=== PATIENT | female | born 1975 | race Caucasian/White ===

== ENCOUNTER 2017-01-01 07:42 | Observation (INO) | payer OTHER ==
--- NOTE | 2017-01-01 08:24 | OBPROG ---
OBG Labor Progress Note Assessment/Plan: Assessment:contractions 1-2 minutes apart denies great pain feeling tightening pain well managed/ feeling tightening cat1 fhr feeling baby move now denies leaking denies bleeding Plan:discharge to home with instructions fu this week in the office 01/01/17 08:21 Subjective: Came into labor and delivery for decreased movement. - SVE Dilation (cm): 1 Effacement (%): 50 Station: -3 - Physical Exam General Appearance: WD/WN, alert, no apparent distress Respiratory: chest non-tender, lungs clear, normal breath sounds Cardiac/Chest: regular rate, rhythm Abdomen: normal bowel sounds Extremities: normal range of motion, Irish's sign (negative bilaterally) DTR- Lower Extremities: Knee (R): 1+, Knee (L): 1+ (no clonus) Skin: normal color, warm/dry Neuro/Psych: no motor/sensory deficits, alert, normal mood/affect, oriented x 3 Oxytocin Orders Assessment - Pre-Induction/Augmentation Assessment Gestational Age: 38 week(s) and 0 day(s) ICD10 Worksheet Patient Problems: Problems Problem Status Onset term decreased movement Acute
--- NOTE | 2017-01-01 15:34 | GHP ---
[f rep st] HISTORY AND PHYSICAL DATE OF ADMISSION: 01/01/2017 The patient is a 41-year-old, 7, para 1, with an EDC of 01/15/2017 whose gestational age is 38 weeks who comes in with complaint of decreased movement today on 01/01/2017. Denies leaking, bleeding. States feeling occasional contractions. MEDICAL HISTORY: History of anemia, thyroid dysfunction, ulcers. GYNECOLOGICAL HISTORY: Abnormal Pap in college. Condom use. SURGICAL HISTORY: Laparoscopy in . D and C in 2009. Infertility. Has consulted [facility] 03/2015. HISTORY: AMA, greater than 40. History of retained placenta. History of multiple losses, trisomy 21, as well as trisomy 13. They have 1 other child, in 05/2010, a male. 7 pounds 6 ounces, 38 and 5/7 weeks. The patient has had multiple losses, in 2006, an EAB. In 02/2013, an SAB. In 10/2013, an MAB with a D and C. In 09/2014, a trisomy 21 with multiple anomalies. In 04/2015, an MAB, trisomy 13, with a D and C. SOCIAL HISTORY: . 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 Significant other's name is Florentin. They have 1 other child, in 05/2010, a male. 7 pounds 6 ounces, 38 and 5/7 weeks. 12 hours, vaginal delivery with an epidural, Severiano. No drug use. No tobacco use. LABS: Patient is O positive. Antibody negative. RPR is nonreactive. Rubella is immune. Hepatitis is negative. HIV is negative. Trio screen is negative. TSH was within normal limits throughout the . Parvovirus: Patient is immune and was negative. AFP was negative. Verifi was negative. 1-hour GTT was within normal limits. PHYSICAL EXAMINATION: GENERAL: Patient is awake, alert, oriented x3. LUNGS: Clear bilaterally. ABDOMEN: Bowel sounds are positive in all 4 quadrants. EXTREMITIES: DTRs 1+ bilaterally. Homans sign is negative. : Occasional contractions on the monitor, anywhere from 1 to 3 minutes apart. PELVIC: Patient was 1 cm, 50% effaced, posterior soft but high. PLAN OF CARE: 1. Continuous monitoring NST. 2. Reassurance. 3. Labor precautions. No change in cervix. Reactive, reassuring NST. Patient was given instructions to return for followup in the office this next week with her appointment. /[id number]/MODL MTDFelipe
== END 2017-01-01 08:40 | disposition home or self-care (01) ==
LOC: FLD 07:42
PROVIDERS: ADMIT Advanced Practice Midwife; ATTEND Advanced Practice Midwife
DX: O36.8130 Decreased fetal movements, third trimester, not applicable or unspecified (principal); O09.523 Supervision of elderly multigravida, third trimester; Z3A.38 38 weeks gestation of pregnancy

== ENCOUNTER 2017-01-10 22:56 | Inpatient (IN) | payer OTHER ==
[2017-01-10] MEDS ORDERED: fentaNYL 100 MCG/2 ML INJ ONE ×2 (23:11→23:31)
[2017-01-10] MEDS: LR 1,000 ML IV PRN (23:15)
[2017-01-10] MEDS ORDERED: OLIVE OIL 118 ML BTL MISC PRN (23:23)
[2017-01-10] MEDS ORDERED: TERBUTALINE SULFATE 1 MG/ML VIAL IV PRN (23:23)
[2017-01-10] MEDS ORDERED: OXYTOCIN/RINGERS LACTATE 1,000 ML IV PRN (23:23)
[2017-01-10] MEDS ORDERED: EPSOM SALT 454 GM TP PRN (23:23)
[2017-01-10 23:31] LABS: % IMMATURE GRANULYOCYTES 0.9 % (0.0-1.1); ADD DIFF? NO; ADD MORPH? NO; ADD SCAN? NO; ATYPICAL LYMPHOCYTE FLAG 10 (0-99); FRAGMENT RBC FLAG 0 (0-99); HEMATOCRIT 34.1 % (38.0-47.0); HEMOGLOBIN 11.9 g/dL (12.6-16.3); LEFT SHIFT FLG 0 (0-99); LIPEMIA HEMOLYSIS FLAG 90 (0-99); MEAN CELL HEMOGLOBIN 31.3 pg (27.9-34.1); MEAN CELL HEMOGLOBIN CONCENTR. 34.9 g/dL (32.4-36.7); MEAN CELL VOLUME 89.7 fL (81.5-99.8); MEAN PLATELET VOLUME 11.7 fL (8.7-11.7); PLATELET CLUMPS FLAG 0 (0-99); PLATELET COUNT 138 10^3/uL (150-400); RED CELL DISTRIBUTION WIDTH 13.3 % (11.5-15.2)
[2017-01-10] MEDS ORDERED: fentaNYL 2MCG/ML/BUP 0.1% RTU 100 ML BAG EP ONE (23:31)
[2017-01-10] MEDS ORDERED: BUPIVACAINE 0.25% 30 ML SDV ONE (23:31)
[2017-01-10] MEDS ORDERED: PHENYLEPHRINE HCL 100 MCG/ML SYR ONE (23:31)
[2017-01-10] MEDS ORDERED: LIDOCAINE 1% 300 MG/30 ML SDV ONE (23:34)
[2017-01-10] MEDS ORDERED: TERBUTALINE SULFATE 1 MG/ML VIAL ONE (23:35)
[2017-01-10] MEDS ORDERED: OXYTOCIN 10 UNIT/ML VIAL ONE (23:35)
[2017-01-10] MEDS ORDERED: OLIVE OIL 118 ML BTL ONE (23:35)
[2017-01-10] MEDS ORDERED: MISOPROSTOL 200 MCG TAB ONE (23:36)
--- NOTE | 2017-01-11 00:39 | PREANESOB ---
Obstetric Pre-Anesthesia Info - General Info Proposed Procedure: Labor and delivery. : 7 Para: 1 WBD: 39 - Info Status: Full Term Monitors: External FHR Baseline (bpm): 125 FHR Pattern: Reassuring - Labor Status Cervical Dilation per last OB SVE: 9 Indications for Labor Analgesia: Pain Control Labor Epidural: Proposed Anesthesia ROS: Prior labor epidural. Allergies/Adverse Reactions: Allergy/AdvReac Type Severity Reaction Status Date / Time No Known Allergies Allergy Unverified 12/31/11 15:16 Home Medications: Medication Instructions Recorded Hydrocodone Bit/Acetaminophen 1 - 2 tab PO Q6PRN PRN #20 tab 12/31/11 [Vicodin 5/500] No Medications [NO HOME 1 ea MISC 12/31/11 MEDICATIONS] IRON 1 tab PO BID 01/11/17 1 tab PO DAILY 01/11/17 Visit Medications: Generic Name Dose Route Start Last Admin Trade Name Freq PRN Reason Stop Dose Admin Lactated Ringer's 1,000 mls @ 0 mls/hr 01/10/17 23:23 Lr IV 07/09/17 23:22 PRN PRN SEE PROTOCOL CONDITIONS Protocol Per Protocol Oxytocin/Lactated Ringer's 1,000 mls @ 150 mls/hr 01/10/17 23:23 Pitocin 20 Units/Lr (Premix) IV PRN PRN Post- bleeding Ibuprofen 600 mg 01/10/17 23:23 Motrin PO 07/09/17 23:22 Q6HRS PRN post , inflammation Magnesium Sulfate 454 gm 01/10/17 23:23 Epsom Salt TP 07/09/17 23:22 Q1H PRN perineal discomfort Marcus Oil 118 ml 01/10/17 23:23 Sweet Oil MISC 07/09/17 23:22 ONCE PRN preneal massage Terbutaline Sulfate 0.25 mg 01/10/17 23:23 Brethine IV 07/09/17 23:22 ONCE PRN Tachysystole Discontinued Medications Generic Name Dose Route Start Last Admin Trade Name Freq PRN Reason Stop Dose Admin Bupivacaine HCl Confirm 01/10/17 23:31 Sensorcaine 0.25% Sdv Administered 01/10/17 23:32 Dose 30 ml .ROUTE .STK-MED ONE Fentanyl Confirm 01/10/17 23:11 Sublimaze Administered 01/10/17 23:12 Dose 100 mcg .ROUTE .STK-MED ONE Fentanyl Confirm 01/10/17 23:31 Sublimaze Administered 01/10/17 23:32 Dose 100 mcg .ROUTE .STK-MED ONE Fentanyl/Bupivacaine HCl Confirm 01/10/17 23:31 Fentanyl/Bupivacaine/Ns 2 Mcg/Ml 0.1% (Premix Administered 01/10/17 23:32 Dose 100 ml EP .STK-MED ONE Lidocaine HCl Confirm 01/10/17 23:34 Lidocaine Hcl 1% Administered 01/10/17 23:35 Dose 300 mg .ROUTE .STK-MED ONE Misoprostol Confirm 01/10/17 23:36 Cytotec Administered 01/10/17 23:37 Dose 1,000 mcg .ROUTE .STK-MED ONE Marcus Oil Confirm 01/10/17 23:35 Sweet Oil Administered 01/10/17 23:36 Dose 118 ml .ROUTE .STK-MED ONE Oxytocin Confirm 01/10/17 23:35 Pitocin Administered 01/10/17 23:36 Dose 30 unit .ROUTE .STK-MED ONE Phenylephrine HCl Confirm 01/10/17 23:31 Neosynephrine Administered 01/10/17 23:32 Dose 1,000 mcg .ROUTE .STK-MED ONE Terbutaline Sulfate Confirm 01/10/17 23:35 Brethine Administered 01/10/17 23:36 Dose 1 mg .ROUTE .STK-MED ONE - Anesthesia History Response to Local Anesthetics: Normal Anesthesia & Operative History: No Prior Problems Family Anesthesia History: Negative - Social History Substance Use/Abuse: Denies - Focused Exam Blood Pressure: 132/80 Heart Rate: 97 Height/Weight (Nursing): Height 170.18 cm Weight 67.585 kg Airway: No abnormalities. Physical Exam: Within normal limits. ASA Status: II Labs: 01/10/17 23:20 Patient ABO/Rh O POSITIVE 01/10/17 23:20 - Plan Anesthetic Plan: CSE Consent Signed and on Chart: Yes Patient/Guardian Understands and Agrees to Plan: Yes
[2017-01-11] MEDS ORDERED: ONDANSETRON 4 MG/2 ML VIAL IVP PRN ×2 (00:41→10:56)
[2017-01-11] MEDS ORDERED: PHENYLEPHRINE HCL 100 MCG/ML SYR IVP PRN ×2 (00:41→10:56)
--- NOTE | 2017-01-11 00:41 | POSTANESTH ---
Post Anesthetic Evaluation Cardiovascular Status: Normal, Stable Respiratory Status: Normal, Stable, Similar to Pre-op Cond. Level of Consciousness/Mental Status: Can Participate in Eval, Alert and Oriented Pain Control: Adequate, Prn Tx Ordered Nausea/Vomiting Control: Adequate, Prn Tx Ordered Complications Possibly Related to Anesthesia: None Noted
[2017-01-11] MEDS ORDERED: LR 500 ML IV SCH (01:00)
[2017-01-11] MEDS ORDERED: fentaNYL 2MCG/ML/BUP 0.1% RTU 100 ML EP SCH (01:00)
[2017-01-11] MEDS ORDERED: LR 500 ML IV PRN (01:19)
[2017-01-11] MEDS ORDERED: fentaNYL 100 MCG/2 ML INJ IVP ONE (01:20)
[2017-01-11] MEDS ORDERED: OXYTOCIN/RINGERS LACTATE 500 ML IV SCH (01:30)
[2017-01-11] MEDS: LR 1,000 ML IV PRN ×3 (02:00→20:40)
--- NOTE | 2017-01-11 02:21 | GHP ---
[f rep st] PREOP HISTORY AND PHYSICAL DATE OF ADMISSION: 01/10/2017 HISTORY OF PRESENT ILLNESS: Upon admission, the patient is a 41-year-old, G7, P1, A5 at 39+ weeks gestation, with an estimated due date of 01/15/2017, who presents after spontaneous rupture of membranes approximately 1930 with a small amount of clear fluid. The patient had a couple episodes of small leakage, but then was able to rest approximately an hour and a half. She was awoken with very strong frequent contractions at 2145. The patient presented to Labor and Delivery shortly there afterwards and was 5 cm dilated, in active labor. The patient was requesting an epidural and feeling quite out of control with the contraction pain. The patient was given fentanyl through the IV after that was started and also was using nitrous for pain control until Dr. Bonner arrived for the epidural. Since the epidural, now, the patient has gotten very comfortable. There was continued small amount of clear fluid, small amount of blood on exam. CARE: The patient has been with [facility] since 10 weeks' gestation. The patient had a history of multiple losses, two of which were confirmed to be chromosomal abnormalities of trisomy 21 and 13. The patient had a lot of anxiety in the 1st trimester, awaiting the results of the Verifi testing which was normal, as well as the increased miscarriage risks. The patient had her first ultrasound performed and showed an anterior low-lying placenta, but no sign of any bleeding under the placenta. The patient had this in response to the some intense cramping she had at 19 weeks' gestation. The followup anatomy ultrasound at 20 weeks revealed estimated weight at the 9th percentile. Normal fluid. There were some suboptimal an anatomy views. The patient had a followup ultrasound at 24 weeks, which continued to show low estimated weight, now at the 21st percentile, but good visualization of all anatomy. The cervix was no longer low-lying. Another followup ultrasound was performed at 30 weeks and now the estimated weight had improved to the 72nd percentile. Fluid was totally normal. The patient has had twice weekly NSTs beginning at 36 weeks due to advanced maternal age. These have all been reactive. The patient has been anemic through the and has been on iron twice a day. Other labs: Maternal blood type O positive, with negative antibody screen. RPR nonreactive. Rubella immune. Hepatitis B surface antigen negative. HIV negative. Cystic fibrosis, SMA, fragile X, all negative. TSH and other thyroid functions normal. Parvovirus negative. Verifi testing was normal with MSAFP negative. 1-hour Glucola was normal. Hematocrit was 31% in mid and dropped to 30%. GBS culture was negative. PAST MEDICAL HISTORY: Frequent headaches, but no migraine disorder. Abnormal Pap smear performed in [facility], no colposcopy was performed. Otherwise Paps all normal. Habitual aborter, and the patient was seen with [facility] in March 2015 for an evaluation. The patient with a history with ulcers. PAST SURGICAL HISTORY: Had a D and C, in 2009 for retained tissue. In 1997, a laparoscopy. PAST OBSTETRIC HISTORY: In 2006, a termination in the 1st trimester. In May 2010, a viable male at 7 pounds 6 ounces delivered vaginally after prolonged pushing stage. , the patient had retained tissue, and a D and C several weeks later for retained placenta. In February 2013, an SAB. In October 2013, a missed AB with a D and C. In September 2014, termination of a with trisomy 21 with multiple anomalies. In April 2015, a d and C for missed AB of a trisomy 13. ALLERGIES: The patient has no known drug allergies. CURRENT MEDICATIONS: Iron twice a day, as well as vitamins. 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 The patient is a nonsmoker. No alcohol or drug use through the . PHYSICAL EXAMINATION: GENERAL: Upon admission, the patient is a well-developed , well-nourished, white female, in significant distress with contraction frequency and intensity and panic about not getting pain relief. VITAL SIGNS: The patient was afebrile with normal vital signs in the 130s over 80s. See nursing documentation for full details. HEART TONE: Category I tracing with a baseline in the 120s with good variability and accelerations. No decelerations noted. Contractions every 2-3 minutes. After the fentanyl, the heart rate tracing lost variability and accelerations, however, has resumed a category I tracing again. PELVIC: Cervical exam repeated now as patient is comfortable with the epidural. Currently there is an anterior lip and the head at -1 station. Fluid clear. EXTREMITIES: Nontender. No edema. ASSESSMENT: Intrauterine at 39+ weeks gestation, in active labor. Spontaneous rupture of membranes, negative group B strep. Anemia in , on iron. History of pushing4-6 hours with her first delivery and then retained placenta with delayed curettage. PLAN: We will add Pitocin if the contraction pattern becomes protracted after the epidural. Will labor down as the patient had extended hours of pushing last time and optimize her energy. /[id number]/MODL MTDD
[2017-01-11] MEDS ORDERED: CALCIUM CARBONATE 500 MG CHEWABLE TAB PO PRN (02:52)
--- NOTE | 2017-01-11 05:17 | OBPROG ---
OBG Labor Progress Note Assessment/Plan: Assessment: IUP at 39w3d rapid active labor, GBS - complete for hours, ctxns short - initiating pitocin again Plan: rest and labor down for now 01/11/17 05:14 Subjective: pt very anxious after recent decel - reassured about how baby looks now. better pain control after recent bolus. strong effort with pushing Objective: 01/10/17 23:20 Patient ABO/Rh O POSITIVE 01/10/17 23:20 Temp Pulse Resp BP Pulse Ox 97 132/80 H 01/11/17 00:40 01/11/17 00:40 - SVE Dilation (cm): 10 Effacement (%): 100 Station: 0 (caput to +1) Dilation Complete Date: 01/11/17 Dilation Complete Time: 02:15 Cates Current Contraction Pattern: Regular (q 2 min on 3 mu/min pit) FHR (bpm): 130 FHR Pattern Variability: Moderate FHR Category: 1 (currently with no decels, at 4am pt had a 7-8 min decels after EVAN bolus while on hands/knees. Good recovery after position change) Membranes: SROM Amniotic Fluid Color: Clear Oxytocin Orders Assessment - Pre-Induction/Augmentation Assessment Gestational Age: 39 week(s) and 3 day(s) ICD10 Worksheet Patient Problems: Problems Problem Status Onset Labor abnormal Acute - ICD10 Problem Qualifiers (1) Labor abnormal
[2017-01-11] MEDS ORDERED: fentaNYL 100 MCG/2 ML INJ ONE ×2 (06:37→09:03)
[2017-01-11] MEDS ORDERED: BUPIVACAINE 0.25% 30 ML SDV ONE (06:38)
--- NOTE | 2017-01-11 06:51 | OBPROG ---
OBG Labor Progress Note Assessment/Plan: Assessment: IUP at 39w3d rapid active labor, GBS - complete for hours pitocin at 3 mu/min Plan: redosing EVAN and then will begin pushing again, will consider assisting 01/11/17 05:14 01/11/17 06:48 01/11/17 06:53 Subjective: hurting in low back and low abd. Dr Bonner redosing EVAN Objective: 01/10/17 23:20 Patient ABO/Rh O POSITIVE 01/10/17 23:20 Temp Pulse Resp BP Pulse Ox 97 132/80 H 01/11/17 00:40 01/11/17 00:40 - SVE Dilation (cm): 10 Effacement (%): 100 Station: +1 (per ) Dilation Complete Date: 01/11/17 Dilation Complete Time: 02:15 Cates Current Contraction Pattern: Regular (q 2-3 min on 3 mu/min pit) FHR (bpm): 130 FHR Pattern Variability: Moderate FHR Category: 2 (occas small variables and accels) Membranes: SROM Amniotic Fluid Color: Clear Oxytocin Orders Assessment - Pre-Induction/Augmentation Assessment Gestational Age: 39 week(s) and 3 day(s) ICD10 Worksheet Patient Problems: Problems Problem Status Onset Labor abnormal Acute - ICD10 Problem Qualifiers (1) Labor abnormal
[2017-01-11] MEDS ORDERED: CEFAZOLIN 2 GM/DEXTROSE/100 ML BAG IV ONE (08:27)
[2017-01-11] MEDS ORDERED: morphINE PF 5 MG/10 ML INJ ONE (08:57)
[2017-01-11] MEDS ORDERED: OXYTOCIN 100 UNITS/10 ML VIAL ONE (09:31)
[2017-01-11] MEDS ORDERED: ONDANSETRON 4 MG/2 ML VIAL ONE ×2 (09:31)
[2017-01-11] MEDS ORDERED: DEXAMETHASONE 4 MG/ML VIAL ONE ×2 (09:31)
[2017-01-11] MEDS ORDERED: PHENYLEPHRINE HCL 100 MCG/ML SYR ONE ×2 (09:31→10:02)
[2017-01-11] MEDS ORDERED: METHYLERGONOVINE MAL 0.2 MG/ML INJ ONE (09:44)
[2017-01-11] MEDS ORDERED: SIMETHICONE 80 MG TAB CHEW PO PRN (10:33)
[2017-01-11] MEDS ORDERED: PROMETHAZINE HCL 25 MG/ML INJ IVP PRN (10:33)
[2017-01-11] MEDS ORDERED: LACTULOSE 20 GM/30 ML UDCUP PO PRN (10:34)
[2017-01-11] MEDS ORDERED: BISACODYL 10 MG SUPP PR PRN (10:34)
[2017-01-11] MEDS ORDERED: MAGNESIUM HYDROXIDE 30 ML UDCUP PO PRN (10:34)
--- NOTE | 2017-01-11 10:38 | OBDEL ---
Info Type: Primary GBS+: No Indications for Delivery: Spontaneous Labor (arrest of descent) Vaginal Delivery - Labor and Delivery Onset of Contractions Date: 01/10/17 Onset of Contractions Time: 21:45 Dilation Complete Date: 01/11/17 Dilation Complete Time: 02:15 Operative Report - Delivery Pre-op Diagnoses: IUP @ 40 weeks, arrest of descent Post-op Diagnoses: same Nulliparous Prior to Delivery: No Presentation at Delivery: Vertex Procedure: Unscheduled, Low Transverse Surgeon: Queta Tripp Programmer Business: Cristiana Petersen Anesthesiologist: Derrick Bonner Foreman Or Supervisor And Operator/CLIENT SUPPORT PROFESSIONAL: Traci Rivas L&Felipe Analgesia/Anesthesia Type: Epidural, Spinal Complications: None Findings: normal uterus tubes and ovaries IV Fluid (ml): 2,000 EBL: 1000 Data Cates Delivery Date: 01/11/17 Delivery Time: 09:41 CATRACHITO: 01/15/17 Gestational Age: 39 week(s) and 3 day(s) Sex of : Female Weight (gm): 3316.894 g Score (1 Min): 5 Score (5 Min): 8 ICD10 Worksheet Patient Problems: Problems Problem Status Onset Arrest of descent, delivered, current hospitalization Acute Delivered by section Acute Labor abnormal Acute - ICD10 Problem Qualifiers (1) Arrest of descent, delivered, current hospitalization (2) Delivered by section
[2017-01-11] MEDS ORDERED: METHYLERGONOVINE MAL 0.2 MG/ML INJ IM ONE (10:40)
--- NOTE | 2017-01-11 10:51 | OBGCSDC ---
General Delivery Information - General Info : 7 Para: 1 Abortions: 5 Delivery Physician/CNM: Queta Tripp Weight Loss Centre Manager: Cristiana Petersen Admission Date: 01/11/17 Labs: Patient ABO/Rh O POSITIVE 01/10/17 23:20 Hct 34.1 % (38.0-47.0) L 01/10/17 23:20 Vaginal - Diagnosis Presentation at Delivery: Vertex - Operations/Procedures L&D Analgesia/Anesthesia Type: Epidural, Spinal - Delivery Number of Prior Sections: 0 Indications for Prior Section: Arrest of Descent Indications for Current Section: Arrest of Descent Type: Primary Surgical Procedures: Unscheduled, Low Transverse Intra-op Complications: None EBL: 1000 L&D Analgesia/Anesthesia Type: Epidural, Spinal - Hospital Course Antepartum: Pt has history of multiple SAB. G5 was an elective TAB secondary to T21 with multiple anomalies, G6 SAB with T 13. She had a prolonged second stage with G2 and a retained placenta. Anxiety during this . AMA age 41. Intrapartum: Admitted @ 5 cm, received epidural. Labored down and quickly progressed to complete. Intermittent pushing efforts over 5 hours with multiple attempts to facilitate position changes. Head never descended past 0 to +1 station. Decision made to proceed with c section secondary to arrest of descent. Data Cates Delivery Date: 01/11/17 Delivery Time: 09:41 CATRACHITO: 01/15/17 Gestational Age: 39 week(s) and 3 day(s) Sex of : Female Weight (gm): 3316.894 g Score (1 Min): 5 Score (5 Min): 8
--- NOTE | 2017-01-11 10:55 | POSTANESTH ---
Post Anesthetic Evaluation Cardiovascular Status: Normal, Stable Respiratory Status: Normal, Stable, Similar to Pre-op Cond. Level of Consciousness/Mental Status: Can Participate in Eval, Alert and Oriented Pain Control: Adequate, Prn Tx Ordered Nausea/Vomiting Control: Adequate, Prn Tx Ordered Complications Possibly Related to Anesthesia: None Noted (Epidural not working well enough for surgery, epidural catheter removed, spinal easy and tolerated well, BP treated, comfortable for C Section, to PACU, no pain or nausea.)
[2017-01-11] MEDS ORDERED: NALOXONE HCL 0.4 MG/ML INJ IVP PRN ×2 (10:56→15:51)
[2017-01-11] MEDS ORDERED: MEPERIDINE 25 MG/ML SYR IVP PRN (10:56)
[2017-01-11] MEDS ORDERED: SCOPOLAMINE HYDROBROMIDE 1.5 MG PATCH TD PRN (10:58)
[2017-01-11] MEDS: KETOROLAC 30 MG/1 ML SDV IVP PRN ×2 (11:14→17:58)
--- NOTE | 2017-01-11 11:17 | GOP ---
[f rep st] OPERATIVE REPORT DATE OF OPERATION: 01/11/2017 SURGEON: Queta Tripp MD [employer] OPERATOR: Aida Petersen, certified nurse assistant designer. ANESTHESIA: Spinal. ANESTHESIOLOGIST: Dr. Bonner. PREOPERATIVE DIAGNOSIS: Intrauterine at 39 weeks gestation with arrest of descent. POSTOPERATIVE DIAGNOSIS: Intrauterine at 39 weeks gestation with arrest of descent. PROCEDURE PERFORMED: Primary low transverse section. FINDINGS: Viable female. Apgars of 5 and 8. Weight of 7 pounds 5 ounces. ESTIMATED BLOOD LOSS: For the procedure was 1000 mL. INDICATIONS: The patient is a 41-year-old 7, para 1-0-5-1, who presented at 39 and 3/7 week s gestation with spontaneous rupture of membranes and spontaneous labor. She was admitted to Labor and Delivery early in the morning on January 11, 2017 at 5 cm dilated and spontaneously ruptured. She r eceived an epidural, had quick progress and was completely dilated at approximately 2:00 a.m. The p atient labored down after she was comfortable with her epidural. She had intermittent pushing effor ts and then resting efforts, with a total attempted second stage of greater than 5 hours, but not co ntinuous pushing during that whole time. She had pushed the baby's head to 0 to +1 station. Howeve r, the head was not descending past the pubic bone or the pelvic outlet and the baby had a large beto unt of caput seen, was felt to be in OP presentation and so the diagnosis of arrest of descent was m carrillo. The patient was given options and opted for a delivery. She was consented for the pr ocedure. She understood the risks and benefits. The risks including bleeding, infection, damage to internal organs, uterus, tubes, ovaries, bowel, bladder, nerves, blood vessels, ureters, risk of injury , risk of hemorrhage requiring blood transfusion or hysterectomy. The patient understood these risk s and benefits, and agreed to proceed. DESCRIPTION OF PROCEDURE: The patient was taken to the operating room where her epidural was remove d and a spinal was replaced. Spinal was replaced without difficulty. She was prepped and draped in the dorsal supine position with a leftward tilt, and a Herrera catheter was placed in her bladder. After adequate anesthesia was assured, a transverse skin incision was made with a scalpel and the in cision was carried down to the underlying layer of fascia with the Bovie. The fascia was incised in the midline. Fascial incision was extended laterally with Riggs scissors. Superior aspect of the f ascial incision was grasped with Arline clamps, elevated, and the rectus muscles were dissected off sharply. Inferior aspect of the fascial incision was grasped with Arline clamps, elevated, and the rectus muscles were dissected off sharply. The rectus muscles were in the midline and the peritoneum was entered sharply. The peritoneal incision was extended superiorly and inferiorly, wi th good visualization of the bladder. The bladder blade was inserted. The vesicouterine peritoneum was grasped with pickups and entered sharply with the Metzenbaum scissors. The incision was extend ed laterally and the bladder flap was created digitally. The bladder blade was reinserted. The dagmar blayne was incised with a knife. There was clear amniotic fluid upon entry into the uterine cavity. T he uterine incision was extended laterally with bandage scissors. The infant was direct OP presenta tion deep into the pelvis. The baby was delivered atraumatically. The mouth and nose were bulb suc tioned, the cord was clamped and cut and the was handed off to the awaiting nurse pr actitioners. Cord bloods were sent. The placenta was removed manually. The uterus was exteriorized and cleared of all clots and debris. The uterine incision was repaired with 0 Vicryl in a running, locked fashion. A second imbricatin g layer of suture was performed with 0 Vicryl. Small areas of bleeding were repaired with 0 Vicryl and good hemostasis was obtained. The uterus was returned to the abdomen. Gutters were cleared of all clots and debris. Reinspection of the uterine incision again assured hemostasis. The rectus mu scles were approximated with 2-0 Vicryl in an inverted mattress fashion. The fascia was closed with #1 Vicryl in a running fashion, the subcutaneous layer was closed with 2-0 Vicryl and the skin was closed with 4-0 Vicryl. The patient tolerated the procedure well. Sponge, lap, needle, and instrum ent counts were correct x2. The patient went to the recovery room in good condition. FLUIDS REPLACED: 2000 mL. URINE OUTPUT: 500 mL. /[id number]/MODL
[2017-01-11] MEDS: HYDROCODONE/APAP 5/325 TAB PO PRN (14:02)
[2017-01-11] MEDS ORDERED: HYDROmorphONE/DILAUDID 6 MG/30 ML PCA IV PRN (15:51)
--- NOTE | 2017-01-11 18:28 | OBPP ---
Progress Note Assessment/Plan: Assessment: 41 y/o POD #0 s/p LTCS secondary to arrest of descent doing well. Plan: continue to optimize pain control with Toradol and Dilaudid MASTER MACHINIST. Will advance diet and try po pain meds. support and routine POC. 01/11/17 18:29 Subjective: Pt is doing better now with Dilaudid MASTER MACHINIST. She is feeling some incisional pain but it is better. No n/v, torito small amounts of re diet. Baby is doing well and nursing. Objective: 01/10/17 23:20 Patient ABO/Rh O POSITIVE 01/10/17 23:20 Temp Pulse Resp BP Pulse Ox 36.5 C 58 L 20 90/60 L 95 01/11/17 16:25 01/11/17 16:25 01/11/17 16:25 01/11/17 16:25 01/11/17 16:25 Uterine Position/Fundal Height: Umbilicus -2 Uterine Tone: Firm Physical Exam - Physical Exam General Appearance: WD/WN, alert, no apparent distress Neck: non-tender, full range of motion, supple Respiratory: chest non-tender, lungs clear, normal breath sounds Cardiac/Chest: regular rate, rhythm Abdomen: normal bowel sounds, dressing (c/d/i) Extremities: swelling (no), Irish's sign (neg)
[2017-01-11] MEDS: SENNOSIDES/DOCUSATE SODIUM TAB PO SCH (20:37)
[2017-01-12] MEDS: KETOROLAC 30 MG/1 ML SDV IVP PRN (00:12)
[2017-01-12] MEDS: IBUPROFEN 600 MG TAB PO PRN ×3 (07:21→19:33)
[2017-01-12] MEDS: SENNOSIDES/DOCUSATE SODIUM TAB PO SCH ×2 (07:21→11:22)
[2017-01-12] MEDS: HYDROCODONE/APAP 5/325 TAB PO PRN (07:22)
[2017-01-12] MEDS ORDERED: PATCH REMOVAL 1 EA PATCH TD ONE (10:58)
[2017-01-12] MEDS: IRON POLYSAC/IRON HEME 28 MG TAB PO SCH ×2 (11:22→23:06)
[2017-01-12] MEDS: OXYCODONE/APAP 5/325 TAB PO PRN ×4 (11:23→23:06)
--- NOTE | 2017-01-12 18:51 | OBPP ---
Progress Note Assessment/Plan: Assessment: pod# 1 s/p PLTCS - arrest of descent anemia breast feeding Plan: iron routine post operative care 01/12/17 18:48 Subjective: patient is doing well. pain controlled better after percocet - hurts more than expected. normal lochia. denies headache and changes in vision. ambulating. passing gas. voiding without difficulty. Objective: 01/12/17 04:35 Patient ABO/Rh O POSITIVE 01/10/17 23:20 Temp Pulse Resp BP Pulse Ox 36.4 C 68 14 84/49 L 93 01/12/17 16:00 01/12/17 16:00 01/12/17 16:00 01/12/17 16:00 01/12/17 16:00 Physical Exam - Physical Exam General Appearance: WD/WN, alert, no apparent distress Respiratory: chest non-tender, lungs clear, normal breath sounds Cardiac/Chest: normal peripheral pulses, regular rate, rhythm Abdomen: normal bowel sounds, hypoactive bowel sounds, non-tender, other ( fundus firm and non tender) Extremities: normal range of motion, non-tender, normal inspection, normal capillary refill Skin: normal color, warm/dry, other (incision clean dry and intact) Neuro/Psych: no motor/sensory deficits, alert, normal mood/affect, oriented x 3
[2017-01-12 20:54] VITALS: RESP 16
[2017-01-13] MEDS: IBUPROFEN 600 MG TAB PO PRN ×4 (01:05→20:01)
[2017-01-13] MEDS: OXYCODONE/APAP 5/325 TAB PO PRN ×5 (03:06→21:00)
[2017-01-13] MEDS: IRON POLYSAC/IRON HEME 28 MG TAB PO SCH ×2 (07:35→20:00)
[2017-01-13] MEDS: SENNOSIDES/DOCUSATE SODIUM TAB PO SCH ×2 (07:35→20:00)
--- NOTE | 2017-01-13 08:11 | OBPP ---
Progress Note Assessment/Plan: Assessment: 1) s/p 1LTCS secondary to arrest of descent POD # 2 - pt is stable 2) Anemia - pt is asymptomatic Plan: Continue routine pp care Encourage ambulation Cont bowel protocol Cont iron/colace Try K pad and abd binder prn Plan for d/c home in 24-48 hrs 01/13/17 08:11 Subjective: Pt seen and examined. She is c/o mid-abdominal and LLQ pain this am. Taking Percocet and Motrin with some relief. Pt is OOB, torito reg diet but decreased appetite, passing flatus, no BM yet. Denies any f/c/n/v/CP or SOB. Moderate lochia. BF is going well so far. Objective: 01/12/17 04:35 Patient ABO/Rh O POSITIVE 01/10/17 23:20 Temp Pulse Resp BP Pulse Ox 36.6 C 85 16 90/52 L 95 01/12/17 20:00 01/12/17 20:00 01/12/17 20:00 01/12/17 20:00 01/12/17 20:00 Uterine Position/Fundal Height: Umbilicus -2 Uterine Tone: Firm Physical Exam - Physical Exam General Appearance: WD/WN, alert, no apparent distress Respiratory: lungs clear, normal breath sounds Cardiac/Chest: regular rate, rhythm Abdomen: normal bowel sounds, non-tender, soft, flatus (+), incision (C/D/I with steri strips) Extremities: non-tender, normal inspection Skin: normal color, warm/dry Neuro/Psych: alert, normal mood/affect, oriented x 3
[2017-01-13] MEDS: POLYETHYLENE GLYCOL 3350 17 GM PKT PO PRN (08:50)
[2017-01-13] MEDS: DOCUSATE SODIUM 100 MG CAP PO PRN (20:00)
[2017-01-14] MEDS: IBUPROFEN 600 MG TAB PO PRN ×3 (01:49→17:03)
[2017-01-14] MEDS: OXYCODONE/APAP 5/325 TAB PO PRN ×4 (01:49→15:46)
[2017-01-14] MEDS: IRON POLYSAC/IRON HEME 28 MG TAB PO SCH (08:28)
[2017-01-14] MEDS: DOCUSATE SODIUM 100 MG CAP PO PRN (08:28)
[2017-01-14] MEDS: POLYETHYLENE GLYCOL 3350 17 GM PKT PO PRN (10:14)
[2017-01-14 10:37] VITALS: BP 91/57; PULSE 52; TEMP 98.2; O2SAT 98
--- NOTE | 2017-01-14 16:37 | OBGCSDC ---
General Delivery Information - General Info : 7 Para: 2 Abortions: 5 Delivery Physician/CNM: Queta Tripp Core Placer: Cristiana Petersen Admission Date: 01/11/17 Labs: Patient ABO/Rh O POSITIVE 01/10/17 23:20 Hct 24.5 % (38.0-47.0) L D 01/12/17 04:35 Vaginal - Diagnosis Presentation at Delivery: Vertex - Operations/Procedures L&D Analgesia/Anesthesia Type: Epidural, Spinal - Delivery Number of Prior Sections: 0 Indications for Current Section: Arrest of Descent Type: Primary Non-surgical Procedures: IUPC Surgical Procedures: Unscheduled L&D Analgesia/Anesthesia Type: Epidural, Spinal - Hospital Course Antepartum: AMA, Intrapartum: spontaneous labor, SROM, epidural, quick progress to complete, 5 hour second stage, protracted course, arrest of descent : difficulties with pain control needed percocet, Ibuprofen, bowel protocol, good breast feeding support [place] [employer] Delivery Date: 01/11/17 Delivery Time: 09:41 CATRACHITO: 01/15/17 Gestational Age: 39 week(s) and 6 day(s) Sex of Infant: Female [place] Weight (gm): 3444 g Score (1 Min): 5 Score (5 Min): 8 Discharge Information - Discharge Information Discharge Medications: Iron, Ibuprofen, Oxycodone Condition: Good Instruction/Follow Up: Two Weeks, Four Weeks, Six Weeks Discharge Physician/CNM: Queta Tripp
--- NOTE | 2017-01-14 16:41 | OBPP ---
Progress Note Assessment/Plan: Assessment: 41 y/o POD #3 s/p LTCS secondary to arrest of descent doing well. Plan: D/c home today with Rx Percocet, Ibuprofen and bifera BID. Follow-up @ [facility] 2,4 , and 6 weeks but prn sooner if pain remains an issue. 01/11/17 18:29 01/14/17 16:40 Subjective: Pt is doing better today, but she is still struggling with pain in LLQ, and some gas pain. Incisional pain has improved. She is ambulating, voiding with difficulty and has a small BM after Dulcolax today. Breast feeding is going well and they are ready to d/c home. Objective: 01/12/17 04:35 Patient ABO/Rh O POSITIVE 01/10/17 23:20 Temp Pulse Resp BP Pulse Ox 36.8 C 52 L 16 91/57 L 98 01/14/17 08:00 01/14/17 08:00 01/14/17 08:00 01/14/17 08:00 01/14/17 08:00 Uterine Position/Fundal Height: Umbilicus -2 Uterine Tone: Firm Physical Exam - Physical Exam General Appearance: WD/WN, alert, no apparent distress Neck: non-tender, full range of motion, supple Respiratory: chest non-tender, lungs clear, normal breath sounds Cardiac/Chest: regular rate, rhythm Abdomen: normal bowel sounds, incision (c/d/i) Extremities: swelling (no), Irish's sign (neg)
== END 2017-01-14 17:30 | disposition home or self-care (01) | DRG 765 ==
LOC: FLD 22:56 → FOB 01-11 12:43
PROVIDERS: ADMIT Obstetrics & Gynecology; ATTEND Obstetrics & Gynecology
PROC: 10D00Z1 Extraction of Products of Conception, Low, Open Approach (ICD-10-PCS; principal; 2017-01-11)
DX: O32.4XX0 Maternal care for high head at term, not applicable or unspecified (principal); O99.013 Anemia complicating pregnancy, third trimester; Z3A.39 39 weeks gestation of pregnancy; O26.23 Pregnancy care for patient with recurrent pregnancy loss, third trimester; Z37.0 Single live birth
CPT/HCPCS: J0690; J1100; J1170; J1885; J2210; J2274; J2370; J2405; J2550; J2590; J3010; J3105

== ENCOUNTER → 2017-02-09 | Outpatient (CLI) | payer OTHER | LOC: FIMAGING 12:44 | PROVIDERS: ATTEND Obstetrics & Gynecology | DX: R18.8 Other ascites (principal); R10.31 Right lower quadrant pain ==

== ENCOUNTER → 2017-07-26 | Outpatient (CLI) | payer OTHER | LOC: FLAB 12:19 | PROVIDERS: ATTEND Obstetrics & Gynecology | DX: Z30.431 Encounter for routine checking of intrauterine contraceptive device (principal); R93.8 Abnormal findings on diagnostic imaging of other specified body structures ==

== ENCOUNTER → 2017-07-26 | Outpatient (CLI) | payer OTHER | LOC: FIMAGING 13:51 | PROVIDERS: ATTEND Obstetrics & Gynecology | DX: T83.32XA Displacement of intrauterine contraceptive device, initial encounter (principal) ==

== ENCOUNTER 2017-07-29 08:50 | Day surgery (SDC) | payer OTHER ==
--- NOTE | 2017-07-28 19:03 | GHP ---
[f rep st] PREOP HISTORY AND PHYSICAL DATE OF ADMISSION: 07/29/2017 PREOPERATIVE DIAGNOSES: 1. Abdominal IUD. 2. Multiparous, desires permanent elective sterilization. SURGERY TO BE PERFORMED: Laparoscopic removal of an abdominal IUD and bilateral salpingectomy. SURGEON: Queta Tripp MD HISTORY OF PRESENT ILLNESS: The patient is a 41-year-old 7, para 2-0-5-2, who underwent a lo w transverse section on 01/11/2017, for a viable female. section was secondary to intolerance of labor. She had a normal course and healed well from her . She elected to have a Mirena IUD for contraception after her baby, and that was placed on May. Mirena IUD was placed. The insertion went well, and pelvic ultrasound revealed the IUD pres ent in the endometrium at the fundus without difficulty. The patient reports that she had some initi al discomfort, cramping, and some mild spotting, but that improved until she had an abrupt onset of s evere cramping, doubled over in pain, and that it made her nauseous that began on the evening of the and progressed to the July 26. We evaluated her in the office and did an ultrasound, and the IUD was not in the endometrium. The ovaries were seen. There was some free fluid in the left adnex a, but the IUD was not visualized in the pelvis or in the endometrium at all. She had an x-ray perfo rmed, a flat plate KUB of the abdomen, that showed a possible atypical IUD versus another foreign bod y in the pelvis outside the uterus. It was difficult to evaluate, so she went underwent an abdominal and pelvic CT without contrast, which revealed the IUD in an eccentric leftward position between the rectum and the uterus, had been expelled from the uterus, and was in the cul-de-sac. There was trac e fluid free fluid in the pelvis. There was no visual evidence of an abscess. The patient was const ipated with a large amount of stool in the rectum. No free air or other issues. Because the IUD has expelled and was causing pain, I recommended laparoscopic removal of the IUD. The patient is multip arous and does not desire any other children, and because of this, we decided to proceed with sterili zation with a bilateral salpingectomy. PAST OBSTETRIC HISTORY: She has had multiple pregnancies. She is 8, para 2. In 2006, she h ad an elective termination of . In May 2010, she had a viable male, 7 pounds 6 ounces, vaginal delivery without complications to the baby although she did have a retained placenta and had to have a D and C. In February 2013, she had a spontaneous . In October 2013, she had a missed , had a D and C. In September 2014, she was with a baby who had trisomy 21 and multipl e anomalies, and she had an elective termination of . Then in April 2015, she was also pr egnant. She had a missed and a D and C, and that baby also had trisomy 13. Then her last b amira, a viable female was born in January 2017 via for intolerance. PAST GYNECOLOGICAL HISTORY: She did have a laparoscopy for pelvic pain in 1997, and she has had a co uple D and C's . She had a consult at [facility], but her was spo ntaneous. PAST MEDICAL HISTORY: None. SURGICAL HISTORY: As above. ALLERGIES: No known drug allergies. MEDICATIONS: She is not on any current medications except vitamins. She is still breast-fe eding her baby. SOCIAL HISTORY: She is to her . She lives with her son, her daughter, and her husban d. 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 She denies tobacco, has social alcohol. No drug use. REVIEW OF SYSTEMS: Pertinent for abdominal and pelvic pain increasing on her left side that was desc ribed as cramping but also sharp in nature. No vaginal bleeding. No other symptoms. No fever, chil ls. Any other of a 10-point review of systems was negative. FAMILY HISTORY: Her father has hepatitis C. OBJECTIVE: VITAL SIGNS: Today she is afebrile. Vital signs are stable. GENERAL: She is a well-de veloped, thin white female in no acute distress. LUNGS: Clear to auscultation bilaterally. HEART: Regular rate and rhythm. No murmur. ABDOMEN: Soft, nondistended. Normal bowel sounds. Moderate tenderness in the left lower quadrant. No rebound or guarding. PELVIC: Normal external genitalia. Normal parous cervix. Uterus is anteverted, anteflexed. There is tenderness in the uterus and in t he left adnexa. RADIOLOGICAL FINDINGS: Pertinent as above. ASSESSMENT AND PLAN: A 41-year-old 7, para 2-0-5-2 with an expelled intrauterine device that is in her left adnexa, abdomen. We will do a laparoscopic removal of her IUD and a bilateral salpin gectomy for sterility. Patient was consented for the procedure. She understood the risks and benefi ts. The risks including bleeding, infection, damage to organs, bowel, bladder, nerves, blood vessels , ureters, risk of needing an open procedure, risk of additional procedures. She understood these ri sks and benefits and agreed to proceed. /[id number]/MODL
[~2017-07-29 08:50] MED LIST: BUPIVACAINE/EPI 0.5% 30 ML SDV ONE; ceFAZolin 2 GM/SWFI 2 GM/20 ML SYR IVP ONE
[2017-07-29] MEDS ORDERED: LR 1,000 ML IV ONE (09:14)
[2017-07-29] MEDS ORDERED: ceFAZolin 2 GM/SWFI 20 ML SYR IVP ONE (09:27)
[2017-07-29 09:30] VITALS: PULSE 61
[2017-07-29] MEDS ORDERED: fentaNYL 100 MCG/2 ML INJ ONE ×2 (10:00→11:49)
[2017-07-29] MEDS ORDERED: MIDAZOLAM 2 MG/2 ML VIAL ONE (10:00)
[2017-07-29] MEDS ORDERED: PROPOFOL 200 MG/20 ML VIAL ONE ×2 (10:00→10:17)
[2017-07-29] MEDS ORDERED: PROMETHAZINE HCL 25 MG/ML INJ IVP PRN (10:35)
[2017-07-29] MEDS ORDERED: LR 500 ML IV PRN (10:35)
[2017-07-29] MEDS ORDERED: ALBUTEROL 3 ML DEYVIAL IH PRN (10:35)
[2017-07-29] MEDS ORDERED: ONDANSETRON 4 MG/2 ML VIAL IVP PRN (10:35)
[2017-07-29] MEDS ORDERED: MEPERIDINE 25 MG/ML SYR IVP PRN (10:35)
[2017-07-29] MEDS ORDERED: NALOXONE HCL 0.4 MG/ML INJ IVP PRN (10:35)
[2017-07-29] MEDS ORDERED: METOCLOPRAMIDE 10 MG/2 ML VIAL IVP PRN (10:35)
[2017-07-29] MEDS ORDERED: DEXAMETHASONE 4 MG/ML VIAL IVP PRN (10:35)
--- NOTE | 2017-07-29 10:35 | PDANEPAE ---
ANE Past Medical History - Cardiovascular History Hx Hypertension: No Hx Arrhythmias: No Hx Chest Pain: No Hx Coronary Artery / Peripheral Vascular Disease: No Hx CHF / Valvular Disease: No Hx Palpitations: No - Pulmonary History Hx COPD: No Hx Asthma/Reactive Airway Disease: No Hx Recent Upper Respiratory Infection: No Hx Oxygen in Use at Home: No Hx Sleep Apnea: No Sleep Apnea Screening Result - Last Documented: Negative - Neurologic History Hx Cerebrovascular Accident: No Hx Seizures: No Hx Dementia: No - Endocrine History Hx Diabetes: No Endocrine History Comment: SYNTHROID - Renal History Hx Renal Disorders: No - Liver History Hx Hepatic Disorders: No - Neurological & Psychiatric Hx Hx Neurological and Psychiatric Disorders: No - Cancer History Hx Cancer: No - Congenital Disorder History Hx Congenital Disorders: No - GI History Hx Gastrointestinal Disorders: No - Other Health History Other Health History: None - Chronic Pain History Chronic Pain: No - Surgical History Prior Surgeries: D&C X2. KNEE SURG. FASCIOTOMY ANE Review of Systems Review of Systems: - Exercise capacity METS (RN): 4 METS ANE Patient History - Allergies Allergies/Adverse Reactions: No Known Allergies Allergy (Verified 07/28/17 11:00) - Home Medications Home Medications: 01/11/17 [Last Taken 07/28/17] Hydrocodone Bit/Acetaminophen [Vicodin 5/500] 07/28/17 [Last Taken Unknown] Ibuprofen [Motrin (*)] 07/28/17 [Last Taken Unknown] oxyCODONE/APAP 5/325 [Percocet 5/325 (*)] 07/28/17 [Last Taken 07/28/17] - NPO status NPO Since - Liquids (Date): 07/28/17 NPO Since - Liquids (Time): 23:30 NPO Since - Solids (Date): 07/28/17 NPO Since - Solids (Time): 23:30 - Smoking Hx Smoking Status: Never smoked - Family Anes Hx Family Hx Anesthesia Complications: NEG ANE Labs/Vital Signs - Vital Signs Blood Pressure: 120/84 Heart Rate: 61 Respiratory Rate: 16 O2 Sat (%): 96 Height: 170.18 cm Weight: 52.163 kg ANE Physical Exam - Airway Neck exam: FROM Mallampati Score: Class 1 Mouth exam: normal dental/mouth exam - Pulmonary Pulmonary: no respiratory distress - Cardiovascular Cardiovascular: regular rate and rhythym, no murmur, rub, or gallop - ASA Status ASA Status: I ANE Anesthesia Plan Anesthesia Plan: general endotracheal anesthesia
[2017-07-29] MEDS ORDERED: DEXAMETHASONE 4 MG/ML VIAL ONE (11:06)
[2017-07-29] MEDS ORDERED: SUGAMMADEX SODIUM 200 MG/2 ML VIAL IVP ONE (11:06)
[2017-07-29] MEDS ORDERED: LIDOCAINE 2% 5 ML SDV ONE (11:06)
[2017-07-29] MEDS ORDERED: METOCLOPRAMIDE 10 MG/2 ML VIAL ONE (11:06)
[2017-07-29] MEDS ORDERED: ROCURONIUM 50 MG/5 ML VIAL ONE (11:06)
[2017-07-29] MEDS ORDERED: ONDANSETRON 4 MG/2 ML VIAL ONE (11:06)
[2017-07-29] MEDS ORDERED: KETOROLAC 30 MG/1 ML SDV ONE (11:06)
[2017-07-29] MEDS ORDERED: fentaNYL 250 MCG/5 ML INJ ONE (11:16)
[2017-07-29] MEDS ORDERED: IBUPROFEN 600 MG TAB PO PRN (11:36)
[2017-07-29] MEDS ORDERED: HYDROCODONE/APAP 5/325 TAB PO PRN (11:37)
--- NOTE | 2017-07-29 11:48 | POSTOPPROG ---
Post Op Note Date of Operation: 07/29/17 Surgeon: Queta Tripp Coal Cutter: Dr Iyer Anesthesiologist: Dr Brant Llanos Anesthesia: GET(General Endotracheal) Pre-op Diagnosis: expulsed IUD, multiparity desires sterilization, inflammed appendix Post-op Diagnosis: same Procedure: laparoscopic removal of pelvic IUD, bilateral salpingectomy, appendectomy Findings: same Inf/Abcess present in the surg proc area at time of surgery?: No Depth: Organ Space Total fluids administered: 1000 Complications: none Specimen(s): bilateral fallopian tubes, appendix
[2017-07-29] MEDS: fentaNYL 100 MCG/2 ML INJ IVP PRN ×2 (11:51→11:57)
[2017-07-29] MEDS ORDERED: OXYCODONE/APAP 5/325 TAB PO PRN (12:14)
[2017-07-29] MEDS ORDERED: HYDROCODONE/APAP 5/325 TAB ONE (12:29)
[2017-07-29 12:33] VITALS: O2SAT 98
[2017-07-29 12:43] VITALS: TEMP 97.5
--- NOTE | 2017-07-29 12:53 | POSTANESTH ---
Post Anesthetic Evaluation Cardiovascular Status: Normal, Stable, Similar to Pre-Op Cond Respiratory Status: Normal, Stable, Similar to Pre-op Cond. Level of Consciousness/Mental Status: Can Participate in Eval Pain Control: Adequate, Prn Tx Ordered Nausea/Vomiting Control: Adequate, Prn Tx Ordered Complications Possibly Related to Anesthesia: None Noted
--- NOTE | 2017-07-29 13:29 | POSTOPPROG ---
Post Op Note Date of Operation: 07/29/17 Surgeon: Thierno Odell Anesthesiologist: Romi Anesthesia: GET(General Endotracheal) Pre-op Diagnosis: migrated IUD Post-op Diagnosis: same with appendiceal adhesions Procedure: laparoscopic appendectomy Findings: appendix completely adhesed to pelvic sidewall Inf/Abcess present in the surg proc area at time of surgery?: No EBL: Minimal Specimen(s): appendix
[2017-07-29 13:33] VITALS: BP 108/76; RESP 18
--- NOTE | 2017-07-29 18:22 | GOP ---
[f rep st] OPERATIVE REPORT DATE OF OPERATION: 07/29/2017 SURGEON: Queta Tripp MD C APPLICATION DEVELOPER: Juanjose Iyer MD. ANESTHESIA: General anesthesia. ANESTHESIOLOGIST: Priyanka Llanos MD. PREOPERATIVE DIAGNOSIS: 1. Expulsed abdominal intrauterine device. 2. Multiparous, desires permanent elective sterilization. POSTOPERATIVE DIAGNOSIS: 1. Expulsed abdominal intrauterine device. 2. Multiparous, desires permanent elective sterilization. 3. Adherent inflamed appendix. PROCEDURE PERFORMED: Laparoscopic removal of an abdominal intrauterine device, bilateral salpingecto my, and appendectomy. FINDINGS: SPECIMENS: Will be bilateral fallopian tubes and appendix. ESTIMATED BLOOD LOSS: For the procedure was less than 20 cc. DESCRIPTION OF PROCEDURE: Patient was taken to the operating room where she was placed under general anesthesia without difficulty. She was prepped and draped in the dorsal lithotomy position and her bladder was drained with a red rubber catheter. After a WHO time-out was performed, an open-sided sp eculum was placed in the vagina, a single-tooth tenaculum was used to grasp the anterior lip of the c ervix and an acorn uterine manipulator was placed through the cervical os and attached to the tenacul um. Attention was then turned to the abdominal portion of the procedure and after injection of Marcaine, a 5 mm skin incision was made in the infraumbilical skin fold and a Veress needle was placed through that incision. There was a good drop in pressure upon entry into the abdominal cavity and pneumoperi toneum was created with carbon dioxide gas. A 5 mm atraumatic trocar was then placed under direct vi sualization through the umbilical port and pneumoperitoneum had been created with carbon dioxide gas. After injection of Marcaine, a 5 mm trocar was placed under direct visualization in the right and t he left lower quadrants. The uterus was anteverted and inspection was made of the pelvis and the IUD was clearly visualized in the posterior cul-de-sac. The IUD was grasped with an atraumatic grasper and removed directly through the 5 mm port on the right side. The left fallopian tube was then grasp ed by the fimbriated end and the LigaSure device was used to dissect from the fimbriate to the cornua l region of the tube and without difficulty hemostasis was obtained and it was removed through the 5 mm port. Identical procedure was performed on the right with the fimbriated end grasped and the Liga Sure dissected from the fimbriated end to the cornual region and it was removed through the port. He mostasis was assured and the uterus and ovaries were visualized bilaterally as were the ureters that were peristalsing normally. Inspection was then made of the rest of the pelvis and the appendix was visualized and found to be adherent to the right abdominal wall and was inflamed and we consulted [facility] on opinion of a possible incidental appendectomy and he agreed that this was the right c ourse for the patient. He performed the appendectomy without difficulty and he will dictate his port ion of procedure separately. The patient tolerated that well. Gallbladder was visualized, was yolanda l as well as the remainder of her pelvis. The pneumoperitoneum was allowed to escape. The 12 mm tro car was removed from the umbilicus and the fascia was closed with 0 Vicryl in a running fashion. Ski n was closed with 4-0 Monocryl. The patient tolerated the procedure well. Sponge, lap, needle, and instrument counts were correct x3. The patient went to the recovery room in good condition. CONSULTING SURGEON: Thierno Odell MD, for the appendix. HISTORY OF PRESENT ILLNESS: The patient is a 41-year-old 7, para 2-0-5-2, who underwent a lo w transverse section on 01/11/2017 for a viable female. She had an IUD placed in May or contraception, a Mirena IUD. The insertion went well. Pelvic ultrasound revealed the IUD present in the endometrium at the fundus without difficulty postprocedure. Patient felt well for a couple m onths until this week where she had abrupt onset of sharp pelvic pain and cramping that was left-side d, left adnexa. She had an evaluation in our office that revealed an ultrasound that revealed IUD wa s not present in the endometrium. It was difficult to visualize. The patient had a KUB that demonst rated a foreign body in the pelvis outside the uterus, difficult to see where. She had an abdominal and pelvic CT without contrast that revealed the IUD in an eccentric leftward position between the re ctum and the uterus. It had expelled from the uterus and was in the cul-de-sac. We discussed this, and I recommended laparoscopic removal of the pelvic IUD. Patient is multiparous and desires permane nt elective sterilization, so we will do a salpingectomy at the same time. The patient was consented for the procedure. She understood the risks and benefits. The risks including bleeding, infection, damage to the pelvis, bowel, bladder, nerves, blood vessels, ureters, need for additional procedures , need for open procedure and that this is permanent sterilization. She understood these risks and b enefits and agreed to proceed. FLUID REPLACEMENT: 1200 cc. URINE OUTPUT: Not measured. /[id number]/MODL
--- NOTE | 2017-07-29 22:43 | GOP ---
[f rep st] OPERATIVE REPORT DATE OF OPERATION: 07/29/2017 SURGEON: Thierno Odell MD PAPERHANGER: None. ANESTHESIA: General endotracheal. ANESTHESIOLOGIST: Dr. Llanos. PREOPERATIVE DIAGNOSIS: Abdominal pain with migrated intrauterine device. POSTOPERATIVE DIAGNOSIS: Abdominal pain with migrated intrauterine device. Appendiceal adhesions. PROCEDURE PERFORMED: FINDINGS: The appendix was completely adhesed to the pelvic sidewall. It was completely mobilized. The mesoappendix was taken with the LigaSure device and the appendix was amputated from the cecal ba se using a single fire Endo-ROBERTO blue load stapler. SPECIMENS: Appendix. ESTIMATED BLOOD LOSS: 2 cc. INDICATIONS: I was asked intraoperatively to render an opinion after the patient had successfully un dergone retrieval of a migrated intrauterine device by Dr. Tripp. Briefly, I was told that the patie nt had longstanding abdominal pain, at times right lower quadrant, and had been worked up for appendi citis in the past and was found to be negative. She continues to have ongoing pain and although it w as attributed to the migrated IUD, there was a chance that appendicitis still played a role. After i nspecting the right pelvic sidewall, it appeared that the appendix was completely adhesed to the pelv ic sidewall. 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 After discuss ing with Dr. Tripp, the decision was made to perform appendectomy. DESCRIPTION OF PROCEDURE: Upon entering the room, the patient had already undergone her retrieval of her intrauterine device. I was briefed on the patient's history by Dr. Tripp and as per our convers ations, decided that appendectomy would be safe and was indicated. We up-sized the infraumbilical po rt to a 12 mm port. The patient already had 2 additional 5 mm trocars placed in the bilateral lower quadrants. Again, we 1st mobilized the appendix by grasping it off the pelvic sidewall and mobilizin g it sharply with a combination of electrocautery and LigaSure device. Once successfully skeletonize d, I took the mesoappendix using the LigaSure device. After complete skeletonization, I amputated th e appendix using a single fire Endo-ROBERTO blue load, noting excellent hemostasis. It was then removed. I inspected my staple line, which was intact and hemostatic. The mesoappendix was also hemostatic. I briefly examined the remainder of the intraabdominal contents and found no other significant path ology. I then handed the case back over to Dr. Tripp to finish. At the time of handing it over, cou nts were reported as correct and the patient was stable. DRAINS: None. /[id number]/MODL
== END 2017-07-29 13:30 | disposition home or self-care (01) ==
LOC: FSGY 08:50
PROVIDERS: ATTEND Obstetrics & Gynecology
PROC: 0UT74ZZ Resection of Bilateral Fallopian Tubes, Percutaneous Endoscopic Approach (ICD-10-PCS; principal; 2017-07-29 10:30)
PROC: 0UPD4HZ Removal of Contraceptive Device from Uterus and Cervix, Percutaneous Endoscopic Approach (ICD-10-PCS; principal; 2017-07-29 10:30)
PROC: 0DTJ4ZZ Resection of Appendix, Percutaneous Endoscopic Approach (ICD-10-PCS; 2017-07-29 10:30)
DX: T83.32XA Displacement of intrauterine contraceptive device, initial encounter (principal); Z30.2 Encounter for sterilization; K38.8 Other specified diseases of appendix
CPT/HCPCS: J0690; J1100; J1885; J2250; J2405; J2704; J2765; J3010

== ENCOUNTER 2018-06-26 16:11 | Emergency (ER) | payer OTHER ==
[2018-06-26] MEDS ORDERED: KETOROLAC 30 MG/1 ML SDV IVP ONE (16:52)
--- NOTE | 2018-06-26 16:58 | EDPHY ---
H & P Stated Complaint: Left flank and low back pain Time Seen by Provider: 06/26/18 16:34 HPI/ROS: CHIEF COMPLAINT: Left flank pain HISTORY OF PRESENT ILLNESS: 42-year-old female presents with left flank pain. Onset of left flank pain 2 weeks ago, waxing and waning since onset. The pain is moderate to severe at times. Associated with nausea. No alleviating or aggravating factors. The pain does not change with movement or deep inspiration. No urinary symptoms. Had outpatient laboratory tests drawn 3 days ago and possibly has a urinary tract infection. No fever. No prior similar symptoms. REVIEW OF SYSTEMS: complete 10 point ROS reviewed and is negative except for the noted elements in the HPI - Personal History LMP (Females 10-55): 8-14 Days Ago Current Tetanus Diphtheria and Acellular Pertussis (TDAP): Yes - Medical/Surgical History Hx Asthma: No Hx Chronic Respiratory Disease: No Hx Diabetes: No Hx Cardiac Disease: No Hx Renal Disease: No Hx Cirrhosis: No Hx Alcoholism: No Hx HIV/AIDS: No Hx Splenectomy or Spleen Trauma: No Other PMH: Recurrent loss - Social History Smoking Status: Never smoked Alcohol Use: Sober Drug Use: None - Physical Exam Exam: General Appearance: Alert, pleasant Eyes: Pupils equal and round, no conjunctival pallor ENT, Mouth: Mucous membranes moist Neck: Normal inspection Respiratory: Lungs are clear to auscultation Cardiovascular: Regular rate and rhythm Gastrointestinal: Abdomen is soft, left upper quadrant tenderness Back: Left lower thoracic paraspinous tenderness, left CVA tenderness Neurological: A&O, nonfocal, normal gait Skin: Warm and dry Extremities: Normal inspection Psychiatric: Mood and affect normal Constitutional: Initial Vital Signs Temperature (C) 36.6 C 06/26/18 16:16 Heart Rate 91 06/26/18 16:16 Respiratory Rate 18 06/26/18 16:16 Blood Pressure 177/107 H 06/26/18 16:16 O2 Sat (%) 98 06/26/18 16:16 O2 Delivery Mode Room Air Allergies/Adverse Reactions: No Known Allergies Allergy (Verified 07/28/17 11:00) Home Medications: Medication Instructions Recorded Hydrocodone/APAP 5/325 [[place] 1 - 2 tab PO Q4H PRN #10 tab 06/26/18 5/325] Lidocaine 5% [Lidoderm 5% Patch 1 ea TD DAILY #10 patch 06/26/18 (*)] Magnesium Citrate [Magnesium 300 ml PO ONCE #1 bottle 06/26/18 Citrate 300 ml (*)] Medical Decision Making - Diagnostics Imaging Results: Imaging Impressions Abdomen/Pelvis CT 06/26/18 16:53 Impression: Mild constipation. Otherwise no source for left sided pain identified. Specifically no evidence of nephro or ureterolithiasis or urinary tract obstruction. Results discussed with Dr. Pitts at 5:31 PM. General information for patients regarding this examination can be found at [email or web address]. If you have questions or comments about this report, please contact me at [phone] (hospital) or [phone] (cell). Chest X-Ray 06/26/18 17:38 Impression: Excellent inspiration. No source for left sided pain identified. Imaging: Discussed imaging studies w/ call centre supervisor Radiologist ED Course/Re-evaluation: This patient presents with waxing and waning left flank pain, concerning for renal colic. Laboratory studies from 06/23/2018 reviewed and are equivocal for UTI. Repeat urinalysis ordered. CT scan of the abdomen and pelvis ordered to evaluate for a ureteral calculus. Toradol [address] scan results are unremarkable and were discussed with the patient. Laboratory studies including urinalysis are normal as well. Unclear etiology of pain. There is no evidence of ureteral calculus or pyelonephritis. Will obtain chest x-ray and D-dimer to rule out intrathoracic etiology of discomfort. D-dimer is normal and chest x-ray is unremarkable. Etiology of pain remains unclear. Results discussed with the patient. Possible musculoskeletal etiology of pain. A lidocaine patch was placed. She will take ibuprofen 3 times daily for pain. I will have the patient take magnesium citrate at home to see if this helps. Warning signs discussed. I will refer this patient to her primary care physician for further outpatient evaluation Differential Diagnosis: Differential diagnosis includes though it is not limited to appendicitis, cholecystitis, diverticulitis, pyelonephritis, bowel perforation, small bowel obstruction. - Data Points Laboratory Results: Laboratory Results 06/26/18 16:44 06/26/18 16:44 06/26/18 06/26/18 06/26/18 17:00 16:44 16:44 WBC RBC Hgb Hct MCV MCH MCHC RDW Plt Count MPV Neut % (Auto) Lymph % (Auto) [place] % (Auto) Eos % (Auto) Baso % (Auto) Nucleat RBC Rel Count Absolute Neuts (auto) Absolute Lymphs (auto) Absolute Monos (auto) Absolute Eos (auto) Absolute Basos (auto) Absolute Nucleated RBC Immature Gran % Immature Gran # D-Dimer 0.27 ug/mLFEU ug/mLFEU (0.00-0.50) Sodium Potassium Chloride Carbon Dioxide Anion Gap BUN Creatinine Estimated GFR Glucose Calcium Beta HCG, Qual NEGATIVE Urine Color YELLOW Urine Appearance HAZY Urine pH 5.0 (5.0-7.5) Ur Specific [place] 1.017 (1.002-1.030) Urine Protein NEGATIVE (NEGATIVE) Urine Ketones NEGATIVE (NEGATIVE) Urine Blood NEGATIVE (NEGATIVE) Urine Nitrate NEGATIVE (NEGATIVE) Urine Bilirubin NEGATIVE (NEGATIVE) Urine Urobilinogen NEGATIVE EU EU (0.2-1.0) Ur Leukocyte Esterase NEGATIVE (NEGATIVE) Urine Glucose NEGATIVE (NEGATIVE) 06/26/18 06/26/18 16:44 16:44 WBC 6.44 10^3/uL 10^3/uL (3.80-9.50) RBC 4.40 10^6/uL 10^6/uL (4.18-5.33) Hgb 14.2 g/dL g/dL (12.6-16.3) Hct 40.9 % % (38.0-47.0) MCV 93.0 fL fL (81.5-99.8) MCH 32.3 pg pg (27.9-34.1) MCHC 34.7 g/dL g/dL (32.4-36.7) RDW 12.7 % % (11.5-15.2) Plt Count 198 10^3/uL 10^3/uL (150-400) MPV 10.8 fL fL (8.7-11.7) Neut % (Auto) 60.3 % % (39.3-74.2) Lymph % (Auto) 28.1 % % (15.0-45.0) [place] % (Auto) 8.4 % % (4.5-13.0) Eos % (Auto) 2.0 % % (0.6-7.6) Baso % (Auto) 0.9 % % (0.3-1.7) Nucleat RBC Rel Count 0.0 % % (0.0-0.2) Absolute Neuts (auto) 3.88 10^3/uL 10^3/uL (1.70-6.50) Absolute Lymphs (auto) 1.81 10^3/uL 10^3/uL (1.00-3.00) Absolute Monos (auto) 0.54 10^3/uL 10^3/uL (0.30-0.80) Absolute Eos (auto) 0.13 10^3/uL 10^3/uL (0.03-0.40) Absolute Basos (auto) 0.06 10^3/uL 10^3/uL (0.02-0.10) Absolute Nucleated RBC 0.00 10^3/uL 10^3/uL (0-0.01) Immature Gran % 0.3 % % (0.0-1.1) Immature Gran # 0.02 10^3/uL 10^3/uL (0.00-0.10) D-Dimer Sodium 139 mEq/L mEq/L (135-145) Potassium 3.9 mEq/L mEq/L (3.5-5.2) Chloride 102 mEq/L mEq/L (97-110) Carbon Dioxide 23 mEq/l mEq/l (22-31) Anion Gap 14 mEq/L mEq/L (6-14) BUN 13 mg/dL mg/dL (7-23) Creatinine 0.7 mg/dL mg/dL (0.6-1.0) Estimated GFR > 60 Glucose 96 mg/dL mg/dL (70-100) Calcium 9.6 mg/dL mg/dL (8.5-10.4) Beta HCG, Qual Urine Color Urine Appearance Urine pH Ur Specific [place] Urine Protein Urine Ketones Urine Blood Urine Nitrate Urine Bilirubin Urine Urobilinogen Ur Leukocyte Esterase Urine Glucose Medications Given: Discontinued Medications Ketorolac Tromethamine (Toradol) 30 mg IVP EDNOW ONE Stop: 06/26/18 16:53 Last Admin: 06/26/18 16:59 Dose: 30 mg Departure - Departure Disposition: Home, Routine, Self-Care Clinical Impression: Left flank pain Condition: Good Instructions: Flank Pain (ED) Additional Instructions: Your tests are normal today, including CT scan of your abdomen, chest x-ray, blood tests and urinalysis. The etiology of your pain is unclear. Take ibuprofen 600 mg 3 times daily for pain. Use a lidocaine patch over the painful area. Take [place] as needed for severe pain. I suggest that you take magnesium citrate 1 bottle [id number] to see if this helps. Please make an appointment to follow up with your primary care physician in 1-2 days. Referrals: NONE *PRIMARY CARE P,. [Primary Care Provider] - As per Instructions Prescriptions: Hydrocodone/APAP 5/325 [[place] 5/325] 1 - 2 tab PO Q4H PRN #10 tab PRN Reason: Pain, Moderate Lidocaine 5% [Lidoderm 5% Patch (*)] 1 ea TD DAILY #10 patch Magnesium Citrate [Magnesium Citrate 300 ml (*)] 300 ml PO ONCE #1 bottle
[2018-06-26 17:01] LABS: PLATELET COUNT 198 10^3/uL (150-400)
[2018-06-26] MEDS ORDERED: LIDOCAINE 4%/MENTHOL 1% PATCH TD ONE (18:07)
[2018-06-26 18:15] VITALS: BP 131/72
[2018-06-26] MEDS ORDERED: PATCH REMOVAL 1 EA PATCH TD SCH (21:00)
== END 2018-06-26 18:16 | disposition home or self-care (01) ==
DX: R10.9 Unspecified abdominal pain (principal); M54.5 Low back pain; N96 Recurrent pregnancy loss
CPT/HCPCS: 96374; J1885